=== PATIENT | male | born 1990 | race Caucasian/White ===

== ENCOUNTER 2021-06-22 18:41 | Emergency (ER) | payer OTHER, SELFPAY ==
--- NOTE | ~2021-06-22 | XR_ITS ---
XR mandible min 4V 06/22/2021 19:32 Indication: Mandibular pain after fall. Procedure: 4 views of the mandible Comparison: No prior studies for comparison. Findings: No fracture, subluxation or dislocation is identified. Paranasal sinuses and orbits are unr emarkable. Temporal mandibular joints are grossly symmetric. Impression: 1: No acute abnormality of the mandible. Reviewed, dictated and finalized at location A. ER SOAK Impression: 1: No acute abnormality of the mandible.
[2021-06-22 18:55] VITALS: BP 134/87; PULSE 108; RESP 16; TEMP 37.2; O2SAT 100
--- NOTE | 2021-06-22 19:32 | ED.FALL ---
HPI - Fall General Chief Complaint: Fall Stated Complaint: fall, jaw pain Time Seen by Provider: 06/22/21 19:00 Source: patient and RN notes reviewed Mode of arrival: ambulatory Limitations: no limitations History of Present Illness HPI Narrative: 30 year old male who presents to [facility] care with complaints of tripping over his dogs when coming from garage into his house and falling directly face first into the door, initially also hurt left wrist but that has resolved. Patient reports that this injury occurred 1 1/2 weeks ago. Patient has bilateral jaw pain and difficulty chewing. He states that he has been eating soup because it hurts too much to chew,difficulty and pain when he tries to open his mouth.Patient reports that he is see his dentist on Thursday for further evaluation of his jaw also, denies any difficulty with swallowing and breathing.He reports that he is taking Tylenol for his discomfort MD complaint: fall Related Data Home Medications Medication Instructions Recorded Confirmed cholecalciferol (vitamin D3) 50 mcg PO DAILY 06/22/21 06/22/21 [Vitamin D3] sertraline 100 mg PO DAILY 06/22/21 06/22/21 Allergies Allergy/AdvReac Type Severity Reaction Status Date / Time No Known Allergies Allergy Verified 06/22/21 19:10 Review of Systems Review of Systems: CONSTITUTIONAL: Denies fever, chills, or sweats. EYES: Denies visual changes, redness, or discharge. ENT: Denies rhinorrhea, congestion, sore throat, or otalgia.positive for pain to bilateral jaw with painful chewing and opening of his mouth. CARDIOVASCULAR: Denies chest pain, palpitations, or edema. RESPIRATORY: Denies cough or dyspnea. GASTROINTESTINAL: Denies abdominal pain, nausea, vomiting, or diarrhea. GENITOURINARY: Denies dysuria or hematuria. SKIN: Denies rash or itching. MUSCULOSKELETAL: Denies back pain, joint pain, or myalgia. NEUROLOGIC: Denies headache, numbness, or weakness. PSYCHIATRIC: Positive for history of anxiety or depression. All systems reviewed & are unremarkable except as noted in HPI and below PMFSH Past Medical History Medical History (Updated 06/23/21 @ 17:27 by Jessica Earl NP) Anxiety Surgical History Surgical History (Updated 06/22/21 @ 19:56 by Jessica Earl NP) Hx of gastric bypass Social History Social History (Updated 06/23/21 @ 17:24 by Jessica Earl NP) Smoking status: Current every day smoker Tobacco type: cigarettes Alcohol intake: unknown Substance use: unknown Living arrangements: with family Gender identity (if verbalized by the patient): Male Comments At time of signature, agree with nursing past medical, surgical, social and family history. There is no relevant family history pertinent to the presenting complaint Exam Narrative: GENERAL: Well-appearing, well-nourished, and in no acute distress. HEAD: Normocephalic, atraumatic. EYES: PERRLA and EOMI. ENT: Nares clear, no rhinorrhea or epistaxis. Mucous membranes moist.TM's normal with good light reflex, throat pink no lesions or exudates, no swelling noted NECK: Supple.no lymphadenopathy Pain to jaw posterior aspects with no swelling present, Patient has pain with chewing and when opening mouth with some restriction noted CHEST: Clear to auscultation. No respiratory distress. HEART: Regular rate and rhythm. No murmur heard. Normal peripheral pulses. ABDOMEN: Soft, nontender, nondistended, normal active bowel sounds. EXTREMITIES: Normal range of motion. No edema. SKIN: Warm, dry, no rash. NEURO: No focal deficits. Alert and oriented x3. Course Course Level of Care: Express Care Visit Vital Signs Vital signs: Vital Signs Temperature 37.2 C 06/22/21 18:55 Pulse Rate 108 H 06/22/21 18:55 Respiratory Rate 16 06/22/21 18:55 Blood Pressure 134/87 06/22/21 18:55 Pulse Oximetry 100 06/22/21 18:55 Temperature 37.2 C 06/22/21 18:55 Pulse Rate 108 H 06/22/21 18:55 Respiratory Rate 16 06/22/21 18:
--- NOTE | 2021-06-22 19:44 | PC.NURSE ---
PT DECLINED ICE FOR COMFORT
== END 2021-06-22 20:05 | disposition home or self-care (01) ==
PROVIDERS: Emergency Provider Registered Nurse; PCP Nurse Practitioner Family
DX: S00.83XA Contusion of other part of head, initial encounter (principal); W01.0XXA Fall on same level from slipping, tripping and stumbling without subsequent striking against object, initial encounter; F41.9 Anxiety disorder, unspecified; F17.210 Nicotine dependence, cigarettes, uncomplicated; Z98.84 Bariatric surgery status
CPT/HCPCS: 70110; 99213; G0463